=== PATIENT | female | born 1990 | race Caucasian/White ===

== ENCOUNTER 2019-10-27 10:50 | Emergency (ER) | payer OTHER, SELFPAY ==
--- NOTE | 2019-10-27 11:06 | ED.SKABFB ---
HPI - Skin/Abscess/Foreign Bdy General Chief complaint: Skin/Abscess/Foreign Body Stated complaint: rash on abd Time Seen by Provider: 10/27/19 11:06 Source: patient and RN notes reviewed History of Present Illness HPI narrative: Patient is a 28-year-old female who presents to the urgent care with complaints of a burning rash to the left lower abdomen . Patient states that she felt a strong burning sensation from the left lower abdomen to the groin that lasted approximately 1 minute at 10 AM. Patient states that she feels a slight burning now and no rash is evident. Patient denies any history of shingles. Denies any exposure to recent shingles. Denies of any urinary symptoms or abdominal pain. Patient states that she feels like the burning is on the surface . No other acute complaints. No acute distress noted. Patient read the plan of care. Related Data Home Medications Medication Instructions Recorded Confirmed escitalopram oxalate [Lexapro] 20 mg PO HS 07/08/19 07/08/19 etonogestrel-ethinyl estradiol 1 vag ring VAGINAL ONCE 07/08/19 07/08/19 [NuvaRing] Allergies Allergy/AdvReac Type Severity Reaction Status Date / Time amoxicillin Allergy Intermediate Swelling, Verified 07/08/19 08:37 rash Penicillins Allergy Intermediate Swelling, Verified 07/08/19 08:38 rash Review of Systems Review of Systems: Narrative: CONSTITUTIONAL: Denies fever, chills, or sweats. EYES: Denies visual changes, redness, or discharge. ENT: Denies rhinorrhea, congestion, sore throat, or otalgia. CARDIOVASCULAR: Denies chest pain, palpitations, or edema. RESPIRATORY: Denies cough or dyspnea. GASTROINTESTINAL: Denies abdominal pain, nausea, vomiting, or diarrhea. GENITOURINARY: Denies dysuria or hematuria. SKIN: Reports of a burning sensation to the skin on the left side of the abdomen radiating to the left groin MUSCULOSKELETAL: Denies back pain, joint pain, or myalgia. NEUROLOGIC: Denies headache, numbness, or weakness. All other systems reviewed are negative, except as documented in HPI. [facility] Social History Social History Gender identity (if verbalized by the patient): Female Comments At the time of my signature, I reviewed and agree with the nursing past medical, surgical, social, and family history. There is no relevant family history pertinent to the patient complaint. Exam Narrative: Exam Narrative: GENERAL: This is a well-nourished, well-developed patient, in no apparent distress. HEAD: normocephalic, atraumatic. EYES: PERRL. Sclera clear/white. Vision is grossly intact. EARS: External ears normal NOSE: External nose normal with no obvious nasal discharge THROAT: Mucous membranes moist, posterior pharynx clear. NECK: Neck supple, non-tender without lymphadenopathy, masses or thyromegaly. GASTROINTESTINAL: Abdomen soft SKIN: No erythema, dermatitis, inflammation noted to the area of concern (left lower abdomen and left groin). Warm, intact with no suspicious lesions or rash, good texture and turgor. NEURO: awake, alert, and oriented to person, place and time. There were no obvious focal neurologic abnormalities. EXTREMITIES: No clubbing, cyanosis, or edema. Course Vital Signs Vital signs: Vital Signs Temperature 97.8 F 10/27/19 11:07 Pulse Rate 88 10/27/19 11:07 Respiratory Rate 18 10/27/19 11:07 Blood Pressure 128/95 H 10/27/19 11:07 Pulse Oximetry 100 10/27/19 11:07 Temperature 97.8 F 10/27/19 11:07 Pulse Rate 88 10/27/19 11:07 Respiratory Rate 18 10/27/19 11:07 Blood Pressure 128/95 H 10/27/19 11:07 Pulse Oximetry 100 10/27/19 11:07 Reviewed?patient is informed that they may have pre-hypertension or hypertension based on a blood pressure reading in the department. I recommend the patient call the primary care provider listed on their discharge instructions or a physician of their choice this week to arrange follow-up for further evaluation of possible pre-hypertension or hy
[2019-10-27 11:07] VITALS: BP 128/95; PULSE 88; RESP 18; TEMP 36.6; O2SAT 100
== END 2019-10-27 11:20 | disposition home or self-care (01) ==
PROVIDERS: Emergency Provider Nurse Practitioner Family; PCP Physician Assistant
DX: R21 Rash and other nonspecific skin eruption (principal)
CPT/HCPCS: 99211; G0463